=== PATIENT | male | born 1955 | race Caucasian/White ===

== ENCOUNTER 2019-03-11 10:00 | Outpatient (RCR) | payer OTHER, MEDICAID, SELFPAY ==
[2019-02-25 11:13] VITALS: BP 134/71; PULSE 75; RESP 16; TEMP 35.9; BMI 80.7
--- NOTE | 2019-02-25 12:29 | HP.PCM_ITS ---
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 Status: Chronic Current Visit: Yes Code(s): L97.922 - Non-pressure chronic ulcer of unspecified part of left lower leg with fat layer exposed (2) Type 2 diabetes mellitus with diabetic polyneuropathy Status: Chronic Current Visit: Yes Code(s): E11.42 - Type 2 diabetes mellitus with diabetic polyneuropathy (3) Venous insufficiency Status: Chronic Current Visit: Yes (4) Chronic ulcer of right leg with fat layer exposed Status: Chronic Current Visit: Yes Code(s): L97.912 - Non-pressure chronic ulcer of unspecified part of right lower leg with fat layer exposed History of Present Illness Chief Complaint: Bilateral lower extremity swelling and ulcers. History of Wound: Mr. Medina is a 63-year-old who was referred here by his primary care physician due to nonhealing bilateral lower extremity ulcers. Symptoms started in November after hospital stay for atrial flutter, sepsis and lower extremity cellulitis. Since then, states that he has noted persistent bilateral lower extremity swelling, blistering and subsequent ulceration. He had been managed by his primary care physician without any significant i mprovement and so was referred here. He also has a history of type 2 diabetes mellitus which per patient is well controlled. Last A1c was 6.4. 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 (Chronic) Peripheral vascular disease (Chronic) Venous insufficiency (Chronic) Malnutrition (Chronic) Surgical History: - - left eye surgery Allergies/Adverse Reactions: Allergies No Known Allergies Allergy (Verified 02/25/19 11:45) Home Medications: Ambulatory Orders Medication Instructions Recorded Carvedilol [Coreg] 3.125 mg PO BID 02/26/17 Doxycycline 50 mg PO DAILY 02/26/17 Fluticasone/Vilanterol [Breo 1 each IH DAILY 02/26/17 Ellipta Inhaler] Gabapentin [Neurontin] 900 mg PO BIDCM 02/26/17 Glipizide [Glucotrol Xl] 5 mg PO DAILY 02/26/17 Levothyroxine [Synthroid] 150 mcg PO DAILY 02/26/17 Liraglutide [Victoza 2-Aleksey] 1.8 mg SQ DAILY 02/26/17 Metformin HCl [Glucophage] 1,000 mg PO BIDCM 02/26/17 Multivitamins,Ther W-Minerals 1 tablet PO DAILY 02/26/17 [Multivitamin With Minerals] Niacin SA [Niaspan] 2,000 mg PO BID 02/26/17 Rosuvastatin Calcium [Crestor] 40 mg PO DAILY 02/26/17 Sitagliptin Phosphate [Januvia] 100 mg PO DAILY 02/26/17 Tadalafil [Cialis] 20 mg PO DAILY 02/26/17 Terazosin HCl [Hytrin] 1 mg PO DAILY 02/26/17 Varenicline [Chantix] 1 mg PO BID 02/26/17 Albuterol Inhaler [Ventolin Hfa 2 puff INHALATION Q4H PRN PRN 02/25/19 (SP)] Apixaban [Eliquis] 5 mg PO BID 02/25/19 Furosemide [Lasix] 40 mg PO BID 02/25/19 Losartan Potassium [Cozaar] 25 mg PO DAILY 02/25/19 Nitroglycerin 0.4 mg SL X1 02/25/19 Bryan-3 Fatty Acids/Fish Oil [Fish 1 each PO 02/25/19 Oil 1,000 mg Capsule] Omeprazole [Prilosec] 20 mg PO DAILY 02/25/19 Spironolactone [Aldactone] 25 mg PO DAILY 02/25/19 Sucralfate [Carafate] 1 gm PO 4X/DAY 02/25/19 Trospium Chloride 20 mg PO BID 02/25/19 Smoking Status: Current every day smoker Review of Systems Constitutional: Denies: Anorexia, Chills, Fever Eyes: Denies: Blurred vision, Pain, Redness HEENT: Denies: Difficulty Swallowing Cardiovascular: Denies: Chest Pain, Chest Tightness Respiratory: Denies: Hemoptysis Gastrointestinal: Denies: Abdominal Pain, Hematemesis, Vomiting Genitourinary: Denies: Hematuria Skin: Denies: Jaundice - Physical Exam Vital Signs Temp Pulse Resp BP 96.6 F L 75 16 134/71 H 02/25/19 11:13 02/25/19 11:13 02/25/19 11:13 02/25/19 11:13 General: Alert, Oriented x3, Cooperative, No apparent distress HEENT: Atraumatic, Normocephalic Oral: Moist Mucosa Neck: Supple, No JVD Lungs: Clear to auscultation, Normal air movement Cardiovascular: Regular rate, Regular Rhythm Abdomen: Soft, Non Tender, Obese Extremities: No cyanosis Skin: Ulcer/ Wound Wound Measurements and Assessment WC - Nurse 1 - General Ulcer Measurement Start: 02/25/19 11:12 Freq: Status: Active Protocol: Activity Type Activity Date Activity User E-Sign Co-Sign Detail Recorded Client Recorded Date Recorded By Document 02/25/19 11:13 [facility] [id number] 02/25/19 11:30 [facility] 02/25/19 11:13 Wound Center Nurse 1 [Ulcer Assessment] #4- LLE CLUSTER -Combined with other wound No -Current Size (cm) - Length 16.5 -Current Size (cm) - Width 19.7 -Current Size (cm) - Depth 0.1 -Total Square Cm 325.05 -Date of Last Picture (Recall this 02/25/19 field) -Photo Taken Yes -Epithelialization None Present -Tunneling No -Undermining/Tunneling No -Circular Undermining No -Exudate Amt None Present -Wound Margin Distinct, Outline Attached -Granulation Amt Small (1-33%) -Granulation Quality Red -Slough/Fibrin Yes -Necrosis Amt Large (67-100%) -Necrotic Tissue Type Eschar -Texture (Eunice-wound Skin Appearance) Assessed -Moisture (Eunice-wound Skin Appearance Assessed ) -Color (Eunice-wound Skin Appearance) Assessed -Temperature (Eunice-wound Skin No Abnormality Appearance) (Pt Warm) -Tenderness on Palpation (Eunice-wound No Skin Appearance) -Ulcer Cleansing Wound Cleanser -Foul Odor after Cleansing No -Anesthetic Used 4% Lidocaine Solution #3- RLE CLUSTER -Combined with other wound No -Current Size (cm) - Length 8.9 -Current Size (cm) - Width 19.4 -Current Size (cm) - Depth 0.1 -Total Square Cm 172.66 -Date of Last Picture (Recall this 02/25/19 field) -Photo Taken Yes -Epithelialization None Present -Tunneling No -Undermining/Tunneling No -Circular Undermining No -Exudate Amt None Present -Wound Margin Distinct, Outline Attached -Granulation Amt Small (1-33%) -Granulation Quality Red -Slough/Fibrin Yes -Necrosis Amt Large (67-100%) -Necrotic Tissue Type Eschar -Texture (Eunice-wound Skin Appearance) Assessed Scarring -Moisture (Eunice-wound Skin Appearance Assessed ) -Color (Eunice-wound Skin Appearance) Assessed Erythema -Temperature (Eunice-wound Skin No Abnormality Appearance) (Pt Warm) -Tenderness on Palpation (Eunice-wound No Skin Appearance) -Ulcer Cleansing Wound Cleanser -Foul Odor after Cleansing No -Anesthetic Used 4% Lidocaine Solution [Edema Assessment] -Lower Limb Edema Present Yes -Right Calf (cm) 38.5 -Right Ankle (cm) 24.9 -Left Calf (cm) 39.2 -Left Ankle (cm) 24.1 WC - Nurse 2 - General Ulcer CM Notes Start: 02/25/19 11:12 Freq: Status: Active Protocol: Activity Type Activity Date Activity User E-Sign Co-Sign Detail Recorded Client Recorded Date Recorded By Document 02/25/19 11:43 MW [id number] 02/25/19 11:55 MW 02/25/19 11:43 Wound Center Nurse 2 [Procedure/Treatment] #4- LLE CLUSTER -Time 11:46 -Correct Patient Yes -Correct Side, Site, Position Yes -Correct Procedure Yes -Procedure Performed Yes -Type of Procedure Debridement -Clinical Debridement Subcutaneous -Post Debridement Size (cm) - Length 13.0 -Post Debridement Size (cm) - Width 14.0 -Post Debridement Size (cm) - Depth 0.1 -Total Square Cm 182.00 -Wound/Ulcer Outcome Not Healed -Ulcer Cleansing Rinsed/ Irrigated with Saline -Foul Odor after Cleansing No -Bioengineered Tissue No -Bleeding Controlled with Pressure -Offloading No -Treatment Response Procedure Tolerated Well #3- RLE CLUSTER -Time 11:46 -Correct Patient Yes -Correct Side, Site, Position Yes -Correct Procedure Yes -Procedure Performed Yes -Type of Procedure Debridement -Clinical Debridement Subcutaneous -Post Debridement Size (cm) - Length 8.0 -Post Debridement Size (cm) - Width 10.0 -Post Debridement Size (cm) - Depth 0.1 -Total Square Cm 80.00 -Wound/Ulcer Outcome Not Healed -Ulcer Cleansing Rinsed/ Irrigated with Saline -Foul Odor after Cleansing No -Bioengineered Tissue No -Bleeding Controlled with Pressure -Offloading No -Treatment Response Procedure Tolerated Well [See Physician Procedure note for Specifics] Pain Scale: 0-10 Numeric [Pain] -Is Patient Pain Free? Yes Musculoskeletal: No Muscle Wasting Neurological: Cranial nerves II-XII grossly intact Debridement Note Post-Debridement Measurements/Treatment WC - Nurse 2 - General Ulcer CM Notes Start: 02/25/19 11:12 Freq: Status: Active Protocol: Activity Type Activity Date Activity User E-Sign Co-Sign Detail Recorded Client Recorded Date Recorded By Document 02/25/19 11:43 MW [id number] 02/25/19 11:55 MW 02/25/19 11:43 Wound Center Nurse 2 #4- LLE CLUSTER -Time 11:46 -Correct Patient Yes -Correct Side, Site, Position Yes -Correct Procedure Yes -Procedure Performed Yes -Type of Procedure Debridement -Clinical Debridement Subcutaneous -Post Debridement Size (cm) - Length 13.0 -Post Debridement Size (cm) - Width 14.0 -Post Debridement Size (cm) - Depth 0.1 -Total Square Cm 182.00 -Wound/Ulcer Outcome Not Healed -Ulcer Cleansing Rinsed/ Irrigated with Saline -Foul Odor after Cleansing No -Bioengineered Tissue No -Bleeding Controlled with Pressure -Offloading No -Treatment Response Procedure Tolerated Well #3- RLE CLUSTER -Time 11:46 -Correct Patient Yes -Correct Side, Site, Position Yes -Correct Procedure Yes -Procedure Performed Yes -Type of Procedure Debridement -Clinical Debridement Subcutaneous -Post Debridement Size (cm) - Length 8.0 -Post Debridement Size (cm) - Width 10.0 -Post Debridement Size (cm) - Depth 0.1 -Total Square Cm 80.00 -Wound/Ulcer Outcome Not Healed -Ulcer Cleansing Rinsed/ Irrigated with Saline -Foul Odor after Cleansing No -Bioengineered Tissue No -Bleeding Controlled with Pressure -Offloading No -Treatment Response Procedure Tolerated Well Pain Scale: 0-10 Numeric Is Patient Pain Free? Yes Wound debrided: Right lower extremity cluster Wound Grade/Stage: Stage II Type of Debridement: Excisional debridement Anesthesia Used: 4% Lidocaine Solution Depth: Down to and including healthy tissue, in the subcutaneous layer Percentage of wound debrided: 100 Instrument Used: 5mm curette Tissue Removed: Slough and devitalized tissue Severity: Fat Layer Exposed Amount of bleeding with debridement: Mild Bleeding Controlled with: Pressure Patient tolerated procedure well - Additional Wound Wound debrided: Left lower extremity cluster Wound Grade/Stage: Stage II Type of Debridement: Excisional debridement Anesthesia Used: 4% Lidocaine Solution Depth: Down to and including healthy tissue, in the subcutaneous layer Percentage of wound debrided: 100 Instrument Used: 5mm curette Tissue Removed: Slough and devitalized tissue Severity: Fat Layer Exposed Amount of bleeding with debridement: Mild Bleeding Controlled with: Pressure Patient tolerated procedure: Patient tolerated procedure well Assessment/Plan Active Problems Chronic ulcer of left leg with fat layer exposed (Chronic) Chronic ulcer of right leg with fat layer exposed (Chronic) Type 2 diabetes mellitus with diabetic polyneuropathy (Chronic) Venous insufficiency (Chronic) Assessment: Nonhealing bilateral lower extremity cluster ulcers secondary to venous insufficiency. Type 2 diabetes mellitus. Morbid obesity. Plan: Debridement done as documented above, procedure was well-tolerated. Recurrent/chronic ulcers are due to poor lower extremity edema control. No concern for infection at this time. Patient states that he recently had ABIs done and did not show any concerns for PAD. Promogran with Xeroform over area of erythema. Bilateral 3M wrap for edema management. Follow-up on Friday for nurse visit. Optimal blood sugar control recommended. Strongly advised to elevate his lower extremities when seated in bed. Exercise as tolerated. Avoid idle standing. Weight loss recommended. Increased protein intake also recommended. Follow-up with me in 1 week. All his questions were answered and he was advised to call with any further questions or concerns. This note was generated with [employer] software. It may contain incorrect words, spelling, and punctuation that were not noted in checking the note before signing.
--- NOTE | 2019-02-25 14:32 | WC ---
DOPPLERS/NEUROPATHY ASSESSMENT NOT COMPLETED. PT HAD ARTERIAL STUDIES/DOPPLER ON 02/09/19 AT [facility]. RESULTS IN CHART.
[2019-03-01 13:10] VITALS: BP 113/72; PULSE 74; RESP 20; TEMP 36.2; BMI 80.7
[2019-03-04 10:36] VITALS: BP 135/57; PULSE 83; RESP 20; TEMP 36.1; BMI 80.7
--- NOTE | 2019-03-04 13:29 | PCM.WC.PN ---
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 Status: Chronic Current Visit: Yes Code(s): L97.922 - Non-pressure chronic ulcer of unspecified part of left lower leg with fat layer exposed (2) Type 2 diabetes mellitus with diabetic polyneuropathy Status: Chronic Current Visit: Yes Code(s): E11.42 - Type 2 diabetes mellitus with diabetic polyneuropathy (3) Venous insufficiency Status: Chronic Current Visit: Yes (4) Chronic ulcer of right leg with fat layer exposed Status: Chronic Current Visit: Yes Code(s): L97.912 - Non-pressure chronic ulcer of unspecified part of right lower leg with fat layer exposed Type of Wound Chief Complaint: Bilateral lower extremity swelling and ulcers. History of Wound: Mr. Medina is a 63-year-old who was referred here by his primary care physician due to nonhealing bilateral lower extremity ulcers. Symptoms started in November after hospital stay for atrial flutter, sepsis and lower extremity cellulitis. Since then, states that he has noted persistent bilateral lower extremity swelling, blistering and subsequent ulceration. He had been managed by his primary care physician without any significant improvement and so was referred here. He also has a history of type 2 diabetes mellitus which per patient is well controlled. Last A1c was 6.4. Progress of Wound: Improving. No new concerns at this time. Tolerated 3Ms without concerns. - Physical Exam Vital Signs Temp Pulse Resp BP 97 F L 83 20 H 135/57 H 03/04/19 10:36 03/04/19 10:36 03/04/19 10:36 03/04/19 10:36 General: Alert, Oriented x3, Cooperative, No apparent distress HEENT: Atraumatic, Normocephalic Oral: Moist Mucosa Neck: Supple Lungs: Normal air movement Abdomen: Non Tender, Obese Extremities: No cyanosis Skin: Ulcer/ Wound Wound Measurements and Assessment WC - Nurse 1 - General Ulcer Measurement Start: 02/25/19 11:12 Freq: Status: Active Protocol: Activity Type Activity Date Activity User E-Sign Co-Sign Detail Recorded Client Recorded Date Recorded By Document 03/01/19 13:10 DL [id number] 03/01/19 13:32 DL Document 03/04/19 10:36 RB [id number] 03/04/19 10:40 RB 05/13/19 05/16/19 13:10 10:36 Wound Center Nurse 1 [Ulcer Assessment] #4- LLE CLUSTER -Combined with other wound No -Current Size (cm) - Length 0.5 -Current Size (cm) - Width 1.5 -Current Size (cm) - Depth 0.1 -Total Square Cm 0.75 -Photo Taken No -Tunneling No -Undermining/Tunneling No -Circular Undermining No No -Exudate Amt None Present Small -Exudate Type Serosanguineous -Wound Margin Flat & Intact Distinct, Outline Attached -Granulation Amt Large (67-100%) Large (67-100%) -Granulation Quality [place] Red -Slough/Fibrin Yes -Necrosis Amt Small (1-33%) -Necrotic Tissue Type Adherent Slough -Structure Exposed N/A N/A -Texture (Eunice-wound Skin Appearance) Scarring Assessed -Moisture (Eunice-wound Skin Appearance No Abnormality Assessed ) -Color (Eunice-wound Skin Appearance) Hemosiderin Assessed Staining -Temperature (Eunice-wound Skin No Abnormality No Abnormality Appearance) (Pt Warm) (Pt Warm) -Tenderness on Palpation (Eunice-wound No No Skin Appearance) -Ulcer Cleansing Wound Cleanser Wound Cleanser -Foul Odor after Cleansing No No -Anesthetic Used 4% Lidocaine Solution #3- RLE CLUSTER -Combined with other wound No -Current Size (cm) - Length 0.1 -Current Size (cm) - Width 0.1 -Current Size (cm) - Depth 0.1 -Total Square Cm 0.01 -Photo Taken No -Epithelialization Large 67-100% -Tunneling No -Undermining/Tunneling No -Circular Undermining No -Exudate Amt None Present None Present -Wound Margin Flat & Intact Distinct, Outline Attached -Granulation Amt Large (67-100%) Large (67-100%) -Granulation Quality [place] -Slough/Fibrin No -Necrosis Amt None Present (0 %) -Structure Exposed N/A N/A -Texture (Eunice-wound Skin Appearance) Scarring Assessed -Moisture (Eunice-wound Skin Appearance No Abnormality Assessed ) -Color (Eunice-wound Skin Appearance) Hemosiderin Assessed Staining -Temperature (Euniec-wound Skin No Abnormality No Abnormality Appearance) (Pt Warm) (Pt Warm) -Tenderness on Palpation (Eunice-wound No No Skin Appearance) -Ulcer Cleansing Wound Cleanser Wound Cleanser -Foul Odor after Cleansing No No [Edema Assessment] -Lower Limb Edema Present Yes -Right Calf (cm) 34 35 -Right Ankle (cm) 21.5 21.6 -Left Calf (cm) 33.8 35.2 -Left Ankle (cm) 21.5 22 WC - Nurse 2 - General Ulcer CM Notes Start: 02/25/19 11:12 Freq: Status: Active Protocol: Activity Type Activity Date Activity User E-Sign Co-Sign Detail Recorded Client Recorded Date Recorded By Document 03/04/19 10:53 MW [id number] 03/04/19 10:55 MW 03/04/19 10:53 Wound Center Nurse 2 [Procedure/Treatment] #4- LLE CLUSTER -Time 10:53 -Correct Patient Yes -Correct Side, Site, Position Yes -Correct Procedure Yes -Procedure Performed Yes -Type of Procedure Debridement -Clinical Debridement Subcutaneous -Post Debridement Size (cm) - Length 0.4 -Post Debridement Size (cm) - Width 1.5 -Post Debridement Size (cm) - Depth 0.1 -Total Square Cm 0.60 -Wound/Ulcer Outcome Not Healed -Ulcer Cleansing Rinsed/ Irrigated with Saline -Foul Odor after Cleansing No -Bioengineered Tissue No -Bleeding Controlled with Pressure -Offloading No -Treatment Response Procedure Tolerated Well #3- RLE CLUSTER -Time 10:53 -Correct Patient Yes -Correct Side, Site, Position Yes -Correct Procedure Yes -Procedure Performed No -Post Debridement Size (cm) - Length 0 -Post Debridement Size (cm) - Width 0 -Post Debridement Size (cm) - Depth 0 -Total Square Cm 0 -Wound/Ulcer Outcome Not Healed [See Physician Procedure note for Specifics] Pain Scale: 0-10 Numeric [Pain] -Is Patient Pain Free? Yes Musculoskeletal: No Muscle Wasting Neurological: Cranial nerves II-XII grossly intact Psych/Mental Status: Normal Affect Debridement Note Post-Debridement Measurements/Treatment WC - Nurse 2 - General Ulcer CM Notes Start: 02/25/19 11:12 Freq: Status: Active Protocol: Activity Type Activity Date Activity User E-Sign Co-Sign Detail Recorded Client Recorded Date Recorded By Document 02/25/19 11:43 MW [id number] 02/25/19 11:55 MW Document 03/04/19 10:53 MW [id number] 03/04/19 10:55 MW 02/25/19 03/04/19 11:43 10:53 Wound Center Nurse 2 #4- LLE CLUSTER -Time 11:46 10:53 -Correct Patient Yes Yes -Correct Side, Site, Position Yes Yes -Correct Procedure Yes Yes -Procedure Performed Yes Yes -Type of Procedure Debridement Debridement -Clinical Debridement Subcutaneous Subcutaneous -Post Debridement Size (cm) - Length 13.0 0.4 -Post Debridement Size (cm) - Width 14.0 1.5 -Post Debridement Size (cm) - Depth 0.1 0.1 -Total Square Cm 182.00 0.60 -Wound/Ulcer Outcome Not Healed Not Healed -Ulcer Cleansing Rinsed/ Rinsed/ Irrigated with Irrigated with Saline Saline -Foul Odor after Cleansing No No -Bioengineered Tissue No No -Bleeding Controlled with Pressure Pressure -Offloading No No -Treatment Response Procedure Procedure Tolerated Well Tolerated Well #3- RLE CLUSTER -Time 11:46 10:53 -Correct Patient Yes Yes -Correct Side, Site, Position Yes Yes -Correct Procedure Yes Yes -Procedure Performed Yes No -Type of Procedure Debridement -Clinical Debridement Subcutaneous -Post Debridement Size (cm) - Length 8.0 0 -Post Debridement Size (cm) - Width 10.0 0 -Post Debridement Size (cm) - Depth 0.1 0 -Total Square Cm 80.00 0 -Wound/Ulcer Outcome Not Healed Not Healed -Ulcer Cleansing Rinsed/ Irrigated with Saline -Foul Odor after Cleansing No -Bioengineered Tissue No -Bleeding Controlled with Pressure -Offloading No -Treatment Response Procedure Tolerated Well Pain Scale: 0-10 Numeric Is Patient Pain Free? Yes Yes Wound debrided: Left lower extremity Wound Grade/Stage: Stage II Type of Debridement: Excisional debridement Anesthesia Used: 4% Lidocaine Solution Depth: Down to and including healthy tissue, in the subcutaneous layer Percentage of wound debrided: 100 Instrument Used: 3mm curette Tissue Removed: Slough and devitalized tissue Severity: Fat Layer Exposed Amount of bleeding with debridement: Mild Bleeding Controlled with: Pressure Patient tolerated procedure well Assessment/Plan Active Problems Chronic ulcer of left leg with fat layer exposed (Chronic) Chronic ulcer of right leg with fat layer exposed (Chronic) Type 2 diabetes mellitus with diabetic polyneuropathy (Chronic) Venous insufficiency (Chronic) Assessment: Nonhealing bilateral lower extremity cluster ulcers secondary to venous insufficiency. Type 2 diabetes mellitus. Morbid obesity. Plan: Debridement done as documented above, procedure was well-tolerated. Improving. Continue Promogran with Xeroform over area of erythema. Bilateral 3M wrap for edema management. Optimal blood sugar control recommended. Strongly advised to elevate his lower extremities when seated and in bed. Exercise as tolerated. Avoid idle standing. Weight loss recommended. Increased protein intake also recommended. Follow-up with me in 1 week. All his questions were answered and he was advised to call with any further questions or concerns. This note was generated with [employer] dictation software. It may contain incorrect words, spelling, and punctuation that were not noted in checking the note before signing.
--- NOTE | 2019-03-04 13:34 | PN.PCM_ITS ---
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 Status: Chronic Current Visit: Yes Code(s): L97.922 - Non-pressure chronic ulcer of unspecified part of left lower leg with fat layer exposed (2) Type 2 diabetes mellitus with diabetic polyneuropathy Status: Chronic Current Visit: Yes Code(s): E11.42 - Type 2 diabetes mellitus with diabetic polyneuropathy (3) Venous insufficiency Status: Chronic Current Visit: Yes (4) Chronic ulcer of right leg with fat layer exposed Status: Chronic Current Visit: Yes Code(s): L97.912 - Non-pressure chronic ulcer of unspecified part of right lower leg with fat layer exposed Type of Wound Chief Complaint: Bilateral lower extremity swelling and ulcers. History of Wound: Mr. Medina is a 63-year-old who was referred here by his primary care physician due to nonhealing bilateral lower extremity ulcers. Symptoms started in November after hospital stay for atrial flutter, sepsis and lower extremity cellulitis. Since then, states that he has noted persistent bilateral lower extremity swelling, blistering and subsequent ulceration. He had been managed by his primary care physician without any significant improvement and so was referred here. He also has a history of type 2 diabetes mellitus which per patient is well controlled. Last A1c was 6.4. Progress of Wound: Improving. No new concerns at this time. Tolerated 3Ms without concerns. - Physical Exam Vital Signs Temp Pulse Resp BP 97 F L 83 20 H 135/57 H 03/04/19 10:36 03/04/19 10:36 03/04/19 10:36 03/04/19 10:36 General: Alert, Oriented x3, Cooperative, No apparent distress HEENT: Atraumatic, Normocephalic Oral: Moist Mucosa Neck: Supple Lungs: Normal air movement Abdomen: Non Tender, Obese Extremities: No cyanosis Skin: Ulcer/ Wound Wound Measurements and Assessment WC - Nurse 1 - General Ulcer Measurement Start: 02/25/19 11:12 Freq: Status: Active Protocol: Activity Type Activity Date Activity User E-Sign Co-Sign Detail Recorded Client Recorded Date Recorded By Document 03/01/19 13:10 DL [id number] 03/01/19 13:32 DL Document 03/04/19 10:36 RB [id number] 03/04/19 10:40 RB 05/13/19 05/16/19 13:10 10:36 Wound Center Nurse 1 [Ulcer Assessment] #4- LLE CLUSTER -Combined with other wound No -Current Size (cm) - Length 0.5 -Current Size (cm) - Width 1.5 -Current Size (cm) - Depth 0.1 -Total Square Cm 0.75 -Photo Taken No -Tunneling No -Undermining/Tunneling No -Circular Undermining No No -Exudate Amt None Present Small -Exudate Type Serosanguineous -Wound Margin Flat & Intact Distinct, Outline Attached -Granulation Amt Large (67-100%) Large (67-100%) -Granulation Quality [place] Red -Slough/Fibrin Yes -Necrosis Amt Small (1-33%) -Necrotic Tissue Type Adherent Slough -Structure Exposed N/A N/A -Texture (Eunice-wound Skin Appearance) Scarring Assessed -Moisture (Eunice-wound Skin Appearance No Abnormality Assessed ) -Color (Eunice-wound Skin Appearance) Hemosiderin Assessed Staining -Temperature (Eunice-wound Skin No Abnormality No Abnormality Appearance) (Pt Warm) (Pt Warm) -Tenderness on Palpation (Eunice-wound No No Skin Appearance) -Ulcer Cleansing Wound Cleanser Wound Cleanser -Foul Odor after Cleansing No No -Anesthetic Used 4% Lidocaine Solution #3- RLE CLUSTER -Combined with other wound No -Current Size (cm) - Length 0.1 -Current Size (cm) - Width 0.1 -Current Size (cm) - Depth 0.1 -Total Square Cm 0.01 -Photo Taken No -Epithelialization Large 67-100% -Tunneling No -Undermining/Tunneling No -Circular Undermining No -Exudate Amt None Present None Present -Wound Margin Flat & Intact Distinct, Outline Attached -Granulation Amt Large (67-100%) Large (67-100%) -Granulation Quality [place] -Slough/Fibrin No -Necrosis Amt None Present (0 %) -Structure Exposed N/A N/A -Texture (Eunice-wound Skin Appearance) Scarring Assessed -Moisture (Eunice-wound Skin Appearance No Abnormality Assessed ) -Color (Eunice-wound Skin Appearance) Hemosiderin Assessed Staining -Temperature (Eunice-wound Skin No Abnormality No Abnormality Appearance) (Pt Warm) (Pt Warm) -Tenderness on Palpation (Eunice-wound No No Skin Appearance) -Ulcer Cleansing Wound Cleanser Wound Cleanser -Foul Odor after Cleansing No No [Edema Assessment] -Lower Limb Edema Present Yes -Right Calf (cm) 34 35 -Right Ankle (cm) 21.5 21.6 -Left Calf (cm) 33.8 35.2 -Left Ankle (cm) 21.5 22 WC - Nurse 2 - General Ulcer CM Notes Start: 02/25/19 11:12 Freq: Status: Active Protocol: Activity Type Activity Date Activity User E-Sign Co-Sign Detail Recorded Client Recorded Date Recorded By Document 03/04/19 10:53 MW [id number] 03/04/19 10:55 MW 03/04/19 10:53 Wound Center Nurse 2 [Procedure/Treatment] #4- LLE CLUSTER -Time 10:53 -Correct Patient Yes -Correct Side, Site, Position Yes -Correct Procedure Yes -Procedure Performed Yes -Type of Procedure Debridement -Clinical Debridement Subcutaneous -Post Debridement Size (cm) - Length 0.4 -Post Debridement Size (cm) - Width 1.5 -Post Debridement Size (cm) - Depth 0.1 -Total Square Cm 0.60 -Wound/Ulcer Outcome Not Healed -Ulcer Cleansing Rinsed/ Irrigated with Saline -Foul Odor after Cleansing No -Bioengineered Tissue No -Bleeding Controlled with Pressure -Offloading No -Treatment Response Procedure Tolerated Well #3- RLE CLUSTER -Time 10:53 -Correct Patient Yes -Correct Side, Site, Position Yes -Correct Procedure Yes -Procedure Performed No -Post Debridement Size (cm) - Length 0 -Post Debridement Size (cm) - Width 0 -Post Debridement Size (cm) - Depth 0 -Total Square Cm 0 -Wound/Ulcer Outcome Not Healed [See Physician Procedure note for Specifics] Pain Scale: 0-10 Numeric [Pain] -Is Patient Pain Free? Yes Musculoskeletal: No Muscle Wasting Neurological: Cranial nerves II-XII grossly intact Psych/Mental Status: Normal Affect Debridement Note Post-Debridement Measurements/Treatment WC - Nurse 2 - General Ulcer CM Notes Start: 02/25/19 11:12 Freq: Status: Active Protocol: Activity Type Activity Date Activity User E-Sign Co-Sign Detail Recorded Client Recorded Date Recorded By Document 02/25/19 11:43 MW [id number] 02/25/19 11:55 MW Document 03/04/19 10:53 MW [id number] 03/04/19 10:55 MW 02/25/19 03/04/19 11:43 10:53 Wound Center Nurse 2 #4- LLE CLUSTER -Time 11:46 10:53 -Correct Patient Yes Yes -Correct Side, Site, Position Yes Yes -Correct Procedure Yes Yes -Procedure Performed Yes Yes -Type of Procedure Debridement Debridement -Clinical Debridement Subcutaneous Subcutaneous -Post Debridement Size (cm) - Length 13.0 0.4 -Post Debridement Size (cm) - Width 14.0 1.5 -Post Debridement Size (cm) - Depth 0.1 0.1 -Total Square Cm 182.00 0.60 -Wound/Ulcer Outcome Not Healed Not Healed -Ulcer Cleansing Rinsed/ Rinsed/ Irrigated with Irrigated with Saline Saline -Foul Odor after Cleansing No No -Bioengineered Tissue No No -Bleeding Controlled with Pressure Pressure -Offloading No No -Treatment Response Procedure Procedure Tolerated Well Tolerated Well #3- RLE CLUSTER -Time 11:46 10:53 -Correct Patient Yes Yes -Correct Side, Site, Position Yes Yes -Correct Procedure Yes Yes -Procedure Performed Yes No -Type of Procedure Debridement -Clinical Debridement Subcutaneous -Post Debridement Size (cm) - Length 8.0 0 -Post Debridement Size (cm) - Width 10.0 0 -Post Debridement Size (cm) - Depth 0.1 0 -Total Square Cm 80.00 0 -Wound/Ulcer Outcome Not Healed Not Healed -Ulcer Cleansing Rinsed/ Irrigated with Saline -Foul Odor after Cleansing No -Bioengineered Tissue No -Bleeding Controlled with Pressure -Offloading No -Treatment Response Procedure Tolerated Well Pain Scale: 0-10 Numeric Is Patient Pain Free? Yes Yes Wound debrided: Left lower extremity Wound Grade/Stage: Stage II Type of Debridement: Excisional debridement Anesthesia Used: 4% Lidocaine Solution Depth: Down to and including healthy tissue, in the subcutaneous layer Percentage of wound debrided: 100 Instrument Used: 3mm curette Tissue Removed: Slough and devitalized tissue Severity: Fat Layer Exposed Amount of bleeding with debridement: Mild Bleeding Controlled with: Pressure Patient tolerated procedure well Assessment/Plan Active Problems Chronic ulcer of left leg with fat layer exposed (Chronic) Chronic ulcer of right leg with fat layer exposed (Chronic) Type 2 diabetes mellitus with diabetic polyneuropathy (Chronic) Venous insufficiency (Chronic) Assessment: Nonhealing bilateral lower extremity cluster ulcers secondary to venous insufficiency. Type 2 diabetes mellitus. Morbid obesity. Plan: Debridement done as documented above, procedure was well-tolerated. Improving. Continue Promogran with Xeroform over area of erythema. Bilateral 3M wrap for edema management. Optimal blood sugar control recommended. Strongly advised to elevate his lower extremities when seated and in bed. Exercise as tolerated. Avoid idle standing. Weight loss recommended. Increased protein intake also recommended. Follow-up with me in 1 week. All his questions were answered and he was advised to call with any further questions or concerns. This note was generated with [email or web address] dictation software. It may contain incorrect words, spelling, and punctuation that were not noted in checking the note before signing.
[2019-03-11 10:17] VITALS: BP 122/87; PULSE 70; RESP 18; TEMP 36.8; BMI 80.7
--- NOTE | 2019-03-11 17:29 | PCM.WC.PN ---
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 Status: Chronic Current Visit: Yes Code(s): L97.922 - Non-pressure chronic ulcer of unspecified part of left lower leg with fat layer exposed (2) Type 2 diabetes mellitus with diabetic polyneuropathy Status: Chronic Current Visit: Yes Code(s): E11.42 - Type 2 diabetes mellitus with diabetic polyneuropathy (3) Venous insufficiency Status: Chronic Current Visit: Yes (4) Chronic ulcer of right leg with fat layer exposed Status: Chronic Current Visit: Yes Code(s): L97.912 - Non-pressure chronic ulcer of unspecified part of right lower leg with fat layer exposed Type of Wound Chief Complaint: Bilateral lower extremity swelling and ulcers. History of Wound: Mr. Medina is a 63-year-old who was referred here by his primary care physician due to nonhealing bilateral lower extremity ulcers. Symptoms started in November after hospital stay for atrial flutter, sepsis and lower extremity cellulitis. Since then, states that he has noted persistent bilateral lower extremity swelling, blistering and subsequent ulceration. He had been managed by his primary care physician without any significant improvement and so was referred here. He also has a history of type 2 diabetes mellitus which per patient is well controlled. Last A1c was 6.4. Progress of Wound: Healed. - Physical Exam Vital Signs Temp Pulse Resp BP 98.2 F 70 18 122/87 H 03/11/19 10:17 03/11/19 10:17 03/11/19 10:17 03/11/19 10:17 General: Alert, Oriented x3, Cooperative, No apparent distress HEENT: Atraumatic, Normocephalic Oral: Moist Mucosa Neck: Supple Lungs: Normal air movement Abdomen: Non Tender, Obese Extremities: No cyanosis Wound Measurements and Assessment WC - Nurse 1 - General Ulcer Measurement Start: 02/25/19 11:12 Freq: Status: Active Protocol: Activity Type Activity Date Activity User E-Sign Co-Sign Detail Recorded Client Recorded Date Recorded By Document 03/11/19 10:17 RANDAL [id number] 03/11/19 10:20 RANDAL 03/11/19 10:17 Wound Center Nurse 1 [Ulcer Assessment] #4- LLE CLUSTER -Combined with other wound No -Current Size (cm) - Length 0 -Current Size (cm) - Width 0 -Current Size (cm) - Depth 0 -Total Square Cm 0 -Date of Last Picture (Recall this 03/11/19 field) -Photo Taken Yes -Texture (Eunice-wound Skin Appearance) No Abnormality Assessed -Moisture (Eunice-wound Skin Appearance No Abnormality ) Assessed -Color (Eunice-wound Skin Appearance) No Abnormality Assessed -Temperature (Eunice-wound Skin No Abnormality Appearance) (Pt Warm) -Ulcer Cleansing soap -Foul Odor after Cleansing No [Edema Assessment] -Lower Limb Edema Present No -Right Calf (cm) 34.2 -Right Ankle (cm) 21.3 -Left Calf (cm) 34.6 -Left Ankle (cm) 22.0 Musculoskeletal: No Muscle Wasting Neurological: Cranial nerves II-XII grossly intact Psych/Mental Status: Normal Affect Debridement Note Post-Debridement Measurements/Treatment WC - Nurse 2 - General Ulcer CM Notes Start: 02/25/19 11:12 Freq: Status: Active Protocol: Activity Type Activity Date Activity User E-Sign Co-Sign Detail Recorded Client Recorded Date Recorded By Document 02/25/19 11:43 MW [id number] 02/25/19 11:55 MW Document 03/04/19 10:53 MW [id number] 03/04/19 10:55 MW 02/25/19 03/04/19 11:43 10:53 Wound Center Nurse 2 #4- LLE CLUSTER -Time 11:46 10:53 -Correct Patient Yes Yes -Correct Side, Site, Position Yes Yes -Correct Procedure Yes Yes -Procedure Performed Yes Yes -Type of Procedure Debridement Debridement -Clinical Debridement Subcutaneous Subcutaneous -Post Debridement Size (cm) - Length 13.0 0.4 -Post Debridement Size (cm) - Width 14.0 1.5 -Post Debridement Size (cm) - Depth 0.1 0.1 -Total Square Cm 182.00 0.60 -Wound/Ulcer Outcome Not Healed Not Healed -Ulcer Cleansing Rinsed/ Rinsed/ Irrigated with Irrigated with Saline Saline -Foul Odor after Cleansing No No -Bioengineered Tissue No No -Bleeding Controlled with Pressure Pressure -Offloading No No -Treatment Response Procedure Procedure Tolerated Well Tolerated Well #3- RLE CLUSTER -Time 11:46 10:53 -Correct Patient Yes Yes -Correct Side, Site, Position Yes Yes -Correct Procedure Yes Yes -Procedure Performed Yes No -Type of Procedure Debridement -Clinical Debridement Subcutaneous -Post Debridement Size (cm) - Length 8.0 0 -Post Debridement Size (cm) - Width 10.0 0 -Post Debridement Size (cm) - Depth 0.1 0 -Total Square Cm 80.00 0 -Wound/Ulcer Outcome Not Healed Not Healed -Ulcer Cleansing Rinsed/ Irrigated with Saline -Foul Odor after Cleansing No -Bioengineered Tissue No -Bleeding Controlled with Pressure -Offloading No -Treatment Response Procedure Tolerated Well Pain Scale: 0-10 Numeric Is Patient Pain Free? Yes Yes No debridement was completed today Assessment/Plan Active Problems Chronic ulcer of left leg with fat layer exposed (Chronic) Chronic ulcer of right leg with fat layer exposed (Chronic) Type 2 diabetes mellitus with diabetic polyneuropathy (Chronic) Venous insufficiency (Chronic) Assessment: Nonhealing bilateral lower extremity cluster ulcers secondary to venous insufficiency. Type 2 diabetes mellitus. Morbid obesity. Plan: Healed. Edema also significantly improved. Soon to get his CircAid. Double layer Tubigrip's for now. Strongly advised on edema management/control. Discharged from the wound clinic. He was advised to call with any questions or concerns.
== END 2019-03-19 23:59 ==
LOC: WC 10:00
PROVIDERS: Family Provider Family Medicine; PCP Family Medicine; Visit Provider Internal Medicine
DX: E11.622 Type 2 diabetes mellitus with other skin ulcer (principal); E11.42 Type 2 diabetes mellitus with diabetic polyneuropathy; L97.822 Non-pressure chronic ulcer of other part of left lower leg with fat layer exposed; I87.2 Venous insufficiency (chronic) (peripheral); L97.812 Non-pressure chronic ulcer of other part of right lower leg with fat layer exposed; M79.89 Other specified soft tissue disorders; E11.51 Type 2 diabetes mellitus with diabetic peripheral angiopathy without gangrene; Z79.899 Other long term (current) drug therapy; F17.200 Nicotine dependence, unspecified, uncomplicated; Z79.01 Long term (current) use of anticoagulants; E66.01 Morbid (severe) obesity due to excess calories; Z68.45 Body mass index [BMI] 70 or greater, adult; Z71.3 Dietary counseling and surveillance
CPT/HCPCS: 11042; 11045; 29580; 29581; 99212; 99213; G0463

== ENCOUNTER 2019-08-19 12:45 | Outpatient (RCR) | payer OTHER, SELFPAY ==
[2019-08-04 11:29] VITALS: BP 126/49; PULSE 81; RESP 16; TEMP 36.2; BMI 35.9
--- NOTE | 2019-08-04 12:49 | PCM.WC.HP ---
(1) Ulcer of right lower extremity, limited to breakdown of skin Status: Chronic Current Visit: Yes Code(s): L97.911 - Non-pressure chronic ulcer of unspecified part of right lower leg limited to breakdown of skin (2) Chronic ulcer of left leg with fat layer exposed Status: Chronic Current Visit: Yes Code(s): L97.922 - Non-pressure chronic ulcer of unspecified part of left lower leg with fat layer exposed History of Present Illness Date of Service: 08/04/19 Chief Complaint: Bilateral Recurrent lower extremity ulcers. History of Wound: Mr. Medina is a 64-year-old who presents due to recurrent bilateral leg ulcers. He reports blistering with subsequent ulcerations which have been ongoing for the last couple of months. He reports compliance with his Circaid for compression. He has tried some conservative wound care but is concerned that it keeps recurring. He feels well otherwise. 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 (Chronic) Peripheral vascular disease (Chronic) Venous insufficiency (Chronic) Malnutrition (Chronic) Surgical History: - - left eye surgery Allergies/Adverse Reactions: Allergies No Known Allergies Allergy (Verified 08/04/19 11:37) Home Medications: Ambulatory Orders Medication Instructions Recorded Carvedilol [Coreg] 3.125 mg PO BID 02/26/17 Doxycycline 50 mg PO DAILY 02/26/17 Fluticasone/Vilanterol [Breo 1 each IH DAILY 02/26/17 Ellipta Inhaler] Gabapentin [Neurontin] 900 mg PO BIDCM 02/26/17 Glipizide [Glucotrol Xl] 5 mg PO DAILY 02/26/17 Levothyroxine [Synthroid] 150 mcg PO DAILY 02/26/17 Liraglutide [Victoza 2-Aleksey] 1.8 mg SQ DAILY 02/26/17 Multivitamins,Ther W-Minerals 1 tablet PO DAILY 02/26/17 [Multivitamin With Minerals] Niacin SA [Niaspan] 2,000 mg PO BID 02/26/17 Rosuvastatin Calcium [Crestor] 40 mg PO DAILY 02/26/17 Sitagliptin Phosphate [Januvia] 100 mg PO DAILY 02/26/17 Terazosin HCl [Hytrin] 1 mg PO DAILY 02/26/17 Varenicline [Chantix] 1 mg PO BID 02/26/17 metFORMIN HCl [Glucophage] 1,000 mg PO BIDCM 02/26/17 Albuterol Inhaler [Ventolin Hfa 2 puff INHALATION Q4H PRN PRN 02/25/19 (SP)] Apixaban [Eliquis] 5 mg PO BID 02/25/19 Furosemide [Lasix] 40 mg PO BID 02/25/19 Losartan Potassium [Cozaar] 25 mg PO DAILY 02/25/19 Nitroglycerin 0.4 mg SL X1 02/25/19 Clutier-3 Fatty Acids/Fish Oil [Fish 3,000 mg PO DAILY 02/25/19 Oil 1,000 mg Capsule] Omeprazole [Prilosec] 20 mg PO DAILY 02/25/19 Spironolactone [Aldactone] 25 mg PO DAILY 02/25/19 Trospium Chloride 20 mg PO BID 02/25/19 Smoking Status: Current every day smoker Review of Systems Constitutional: Denies: Anorexia, Chills, Fever Eyes: Denies: Pain, Redness HEENT: Denies: Difficulty Hearing, Difficulty Swallowing Cardiovascular: Denies: Chest Pain, Claudication, Chest Pressure Respiratory: Denies: Hemoptysis Gastrointestinal: Denies: Abdominal Pain, Hematemesis, Vomiting Skin: Denies: Jaundice - Physical Exam Vital Signs Temp Pulse Resp BP 97.1 F L 81 16 126/49 H 08/04/19 11:29 08/04/19 11:29 08/04/19 11:29 08/04/19 11:29 General: Alert, Oriented x3, Cooperative, No apparent distress HEENT: Atraumatic, Normocephalic Oral: Moist Mucosa Neck: Supple Lungs: Normal air movement Cardiovascular: Regular rate, Regular Rhythm, Normal S1, Normal S2 Abdomen: Soft, Non Tender, Obese Extremities: No cyanosis, Edema Skin: Ulcer/ Wound Wound Measurements and Assessment WC - Nurse 1 - General Ulcer Measurement Start: 08/04/19 11:29 Freq: Status: Active Protocol: Activity Type Activity Date Activity User E-Sign Co-Sign Detail Recorded Client Recorded Date Recorded By Document 08/04/19 11:29 [facility] [id number] 08/04/19 11:37 [facility] 08/04/19 11:29 Wound Center Nurse 1 [Ulcer Assessment] #7- LLE CLUSTER -Combined with other wound No -Current Size (cm) - Length 8.5 -Current Size (cm) - Width 11.4 -Current Size (cm) - Depth 0.1 -Total Square Cm 96.90 -Date of Last Picture (Recall this 08/04/19 field) -Photo Taken Yes -Epithelialization None Present -Tunneling No -Undermining/Tunneling No -Circular Undermining No -Exudate Amt None Present -Wound Margin Distinct, Outline Attached -Granulation Amt None Present (0 %) -Slough/Fibrin Yes -Necrosis Amt Large (67-100%) -Necrotic Tissue Type Eschar -Texture (Eunice-wound Skin Appearance) Assessed, Scarring -Moisture (Eunice-wound Skin Appearance Assessed,Dry/ ) Scaly -Color (Eunice-wound Skin Appearance) Assessed, Hemosiderin Staining -Temperature (Eunice-wound Skin No Abnormality Appearance) (Pt Warm) -Tenderness on Palpation (Eunice-wound No Skin Appearance) -Ulcer Cleansing Rinsed/ Irrigated with Saline -Foul Odor after Cleansing No -Anesthetic Used 4% Lidocaine Solution #6- R RON -Combined with other wound No -Current Size (cm) - Length 0.8 -Current Size (cm) - Width 0.7 -Current Size (cm) - Depth 0.1 -Total Square Cm 0.56 -Date of Last Picture (Recall this 08/04/19 field) -Photo Taken Yes -Epithelialization None Present -Tunneling No -Undermining/Tunneling No -Circular Undermining No -Exudate Amt None Present -Wound Margin Distinct, Outline Attached -Granulation Amt None Present (0 %) -Slough/Fibrin Yes -Necrosis Amt Large (67-100%) -Necrotic Tissue Type Eschar -Texture (Eunice-wound Skin Appearance) Assessed, Scarring -Moisture (Eunice-wound Skin Appearance Assessed,Dry/ ) Scaly -Color (Eunice-wound Skin Appearance) Assessed, Hemosiderin Staining -Temperature (Eunice-wound Skin No Abnormality Appearance) (Pt Warm) -Tenderness on Palpation (Eunice-wound No Skin Appearance) -Ulcer Cleansing Rinsed/ Irrigated with Saline -Foul Odor after Cleansing No -Anesthetic Used 4% Lidocaine Solution #5- RLE CLUSTER -Combined with other wound No -Current Size (cm) - Length 9.6 -Current Size (cm) - Width 17.7 -Current Size (cm) - Depth 0.1 -Total Square Cm 169.92 -Date of Last Picture (Recall this 08/04/19 field) -Photo Taken Yes -Epithelialization None Present -Tunneling No -Undermining/Tunneling No -Circular Undermining No -Exudate Amt None Present -Wound Margin Distinct, Outline Attached -Granulation Amt None Present (0 %) -Slough/Fibrin Yes -Necrosis Amt Large (67-100%) -Necrotic Tissue Type Eschar -Texture (Eunice-wound Skin Appearance) Assessed, Scarring -Moisture (Eunice-wound Skin Appearance Assessed,Dry/ ) Scaly -Color (Eunice-wound Skin Appearance) Assessed, Hemosiderin Staining -Temperature (Eunice-wound Skin No Abnormality Appearance) (Pt Warm) -Tenderness on Palpation (Eunice-wound No Skin Appearance) -Ulcer Cleansing Rinsed/ Irrigated with Saline -Foul Odor after Cleansing No -Anesthetic Used 4% Lidocaine Solution [Edema Assessment] -Lower Limb Edema Present Yes -Right Calf (cm) 33.5 -Right Ankle (cm) 23 -Left Calf (cm) 35.2 -Left Ankle (cm) 22.1 WC - Nurse 2 - General Ulcer CM Notes Start: 08/04/19 11:29 Freq: Status: Active Protocol: Activity Type Activity Date Activity User E-Sign Co-Sign Detail Recorded Client Recorded Date Recorded By Document 08/04/19 11:45 MW [id number] 08/04/19 11:53 MW 08/04/19 11:45 Wound Center Nurse 2 [Procedure/Treatment] #7- LLE CLUSTER -Time 11:51 -Correct Patient Yes -Correct Side, Site, Position Yes -Correct Procedure Yes -Procedure Performed Yes -Type of Procedure Debridement -Clinical Debridement Subcutaneous -Post Debridement Size (cm) - Length 0.6 -Post Debridement Size (cm) - Width 0.9 -Post Debridement Size (cm) - Depth 0.1 -Total Square Cm 0.54 -Wound/Ulcer Outcome Not Healed -Ulcer Cleansing Rinsed/ Irrigated with Saline -Foul Odor after Cleansing No -Bioengineered Tissue No -Bleeding Controlled with Pressure -Offloading No -Treatment Response Procedure Tolerated Well #6- R RON -Time 11:50 -Correct Patient Yes -Correct Side, Site, Position Yes -Correct Procedure Yes -Procedure Performed No -Wound/Ulcer Outcome Not Healed -Ulcer Cleansing Not Cleansed -Foul Odor after Cleansing No -Bioengineered Tissue No -Bleeding Controlled with Pressure -Offloading No -Treatment Response Procedure Tolerated Well #5- RLE CLUSTER -Time 11:50 -Correct Patient Yes -Correct Side, Site, Position Yes -Correct Procedure Yes -Procedure Performed No -Wound/Ulcer Outcome Not Healed -Ulcer Cleansing Not Cleansed -Foul Odor after Cleansing No -Bioengineered Tissue No -Bleeding Controlled with NA -Offloading No -Treatment Response Procedure Tolerated Well [See Physician Procedure note for Specifics] Pain Scale: 0-10 Numeric [Pain] -Is Patient Pain Free? Yes Musculoskeletal: No Muscle Wasting Neurological: Cranial nerves II-XII grossly intact Psych/Mental Status: Normal Affect Debridement Note Post-Debridement Measurements/Treatment WC - Nurse 2 - General Ulcer CM Notes Start: 08/04/19 11:29 Freq: Status: Active Protocol: Activity Type Activity Date Activity User E-Sign Co-Sign Detail Recorded Client Recorded Date Recorded By Document 08/04/19 11:45 MW [id number] 08/04/19 11:53 MW 08/04/19 11:45 Wound Center Nurse 2 #7- LLE CLUSTER -Time 11:51 -Correct Patient Yes -Correct Side, Site, Position Yes -Correct Procedure Yes -Procedure Performed Yes -Type of Procedure Debridement -Clinical Debridement Subcutaneous -Post Debridement Size (cm) - Length 0.6 -Post Debridement Size (cm) - Width 0.9 -Post Debridement Size (cm) - Depth 0.1 -Total Square Cm 0.54 -Wound/Ulcer Outcome Not Healed -Ulcer Cleansing Rinsed/ Irrigated with Saline -Foul Odor after Cleansing No -Bioengineered Tissue No -Bleeding Controlled with Pressure -Offloading No -Treatment Response Procedure Tolerated Well #6- R RON -Time 11:50 -Correct Patient Yes -Correct Side, Site, Position Yes -Correct Procedure Yes -Procedure Performed No -Wound/Ulcer Outcome Not Healed -Ulcer Cleansing Not Cleansed -Foul Odor after Cleansing No -Bioengineered Tissue No -Bleeding Controlled with Pressure -Offloading No -Treatment Response Procedure Tolerated Well #5- RLE CLUSTER -Time 11:50 -Correct Patient Yes -Correct Side, Site, Position Yes -Correct Procedure Yes -Procedure Performed No -Wound/Ulcer Outcome Not Healed -Ulcer Cleansing Not Cleansed -Foul Odor after Cleansing No -Bioengineered Tissue No -Bleeding Controlled with NA -Offloading No -Treatment Response Procedure Tolerated Well Pain Scale: 0-10 Numeric Is Patient Pain Free? Yes Wound debrided: Left Ron Type of Debridement: Excisional debridement Anesthesia Used: 4% Lidocaine Solution Depth: Down to and including healthy tissue, in the subcutaneous layer Percentage of wound debrided: 100 Instrument Used: 3mm curette Tissue Removed: Slough and devitalized tissue Severity: Fat Layer Exposed Amount of bleeding with debridement: Mild Bleeding Controlled with: Pressure Patient tolerated procedure well Assessment/Plan Active Problems Chronic ulcer of left leg with fat layer exposed (Chronic) Ulcer of right lower extremity, limited to breakdown of skin (Chronic) Assessment: Recurrent bilateral lower extremity cluster ulcers. Statsis Dermatitis. Type 2 diabetes mellitus. Morbid obesity. Plan: Debridement done as documented above, procedure was well tolerated. Bilateral area of Stasis dermatitis which is where ulceration is primarily. Trace to 1+ edema. As above, he reports compliance with compression. He however admits that he does not moisturize his skin at all. He was advised to Aquahor healing ointment recommended. Xeroform to the reddened/ scab area. Guaze and tap to secure. Continue Circaid for compression. Avoid idle standing, elevate lower extremities when seated and in bed and also increase protein intake. Optimal Diabetes control. Venous and Arterial studies also ordered . His questions were answered and he was advised to call with any further questions or concerns. Follow-up in a week. This note was generated with [employer] software. It may contain incorrect words, spelling, and punctuation that were not noted in checking the note before signing.
--- NOTE | 2019-08-11 13:50 | ART_ITS ---
Reason For Study: PAD Procedure A bilateral lower extremity continuous wave Doppler with analog waveform analysis,segmental pressures,and ankle brachial indexes without exercise. Left Segmental Pressures Left brachial= 91mmHg. Left posterior tibial artery = 116mmHg. Left dorsalis pedis artery = 99mmHg. Left digit = 86 mmHg. The left dorsalis pedis waveforms are triphasic. The left posterior tibial artery waveforms are triphasic. Right Segmental Pressures Right brachial= 94mmHg. Right posterior tibial artery = 117mmHg. Right dorsalis pedis artery = 120mmHg. Right digit = 73 mmHg. The right dorsalis pedis waveforms are triphasic. The right posterior tibial artery waveforms are triphasic. Indices The right ankle brachial index by the dorsalis pedis is 1.28. The right ankle brachial index by the posterior tibial artery is 1.24. The right digital-brachial index is 0.78. The left ankle brachial index by the dorsalis pedis is 1.05. The left ankle brachial index by the posterior tibial artery is 1.23. The left digital-brachial index is 0.91. Interpretation Summary Triphasic Doppler waveforms are noted at ankle level bilaterally. Pulse-volume recordings appear satisfactory at all levels bilaterally. Resting ankle-brachial indices are normal bilaterally. Digital-brachial indices are normal bilaterally. There is no evidence of significant arterial occlusive disease in the lower extremities bilaterally. Ordering Physician: Milrded Jackson Referring Physician: James Stein Performed By: Julieth Abernathy RVT
--- NOTE | 2019-08-11 13:50 | VDLE_ITS ---
Reason For Study: Edema RIGHT LEFT CFV is compressible, spontaneous, phasic, CFV is compressible, spontaneous, phasic, competent and demonstrates normal competent, and demonstrates normal augmentation. augmentation. FV is compressible, spontaneous, phasic, FV is compressible, spontaneous, phasic, competent and demonstrates normal competent and demonstrates normal augmentation. augmentation. POP V is compressible, spontaneous, phasic, POP V is compressible, spontaneous, phasic, competent and demonstrates normal competent and demonstrates normal augmentation. augmentation. T/P Trunk is compressible. T/P Trunk is compressible. PTV is compressible. PTV is compressible. RT PerV is compressible. LT PerV is compressible. SFJ is competent and measures 0.80 x 0.85 cm. SFJ is competent and measures 1.18 x 1.11 cm. GSV proximal thigh measures 0.57 x 0.57 cm. GSV proximal thigh measures 0.51 x 0.55 cm. GSV at knee measures 0.44 x0.44 cm. GSV above knee is competent. GSV is competent throughout. GSV at knee measures 0.41 x 0.44 cm. SSV proximal calf is competent and measures GSV below knee is INCOMPETENT for greater 0.10 x 0.11 cm. than 0.5 seconds. Procedure SSV at prox calf measures 0.06 x 0.06 cm and Exam performed in department. is to small to evaluate. A preliminary report was called and/or faxed to [facility]. Interpretation Summary Deep veins of the lower extremities are bilaterally patent and compressible segmentally. There is no evidence of deep vein thrombosis on either side. Valvular competence appears intact within the proximal deep venous systems bilaterally. The great saphenous veins appear bilaterally patent and compressible segmentally. Sapheno-femoral junctions are bilaterally competent . The right great saphenous vein appears segmentally competent. The left great saphenous vein appears competent above the knee. The left great saphenous vein appears incompetent below the knee. The right small saphenous vein is patent and competent. The left small saphenous vein is too small to assess. Ordering Physician: Mildred Jackson Referring Physician: James Stein Performed By: Julieth Abernathy RVT
[2019-08-12 11:24] VITALS: BP 80/55; PULSE 89; RESP 20; TEMP 36.5; BMI 35.9
--- NOTE | 2019-08-12 12:07 | PN.PCM_ITS ---
(1) Ulcer of right lower extremity, limited to breakdown of skin Status: Chronic Current Visit: Yes Code(s): L97.911 - Non-pressure chronic ulcer of unspecified part of right lower leg limited to breakdown of skin (2) Chronic ulcer of left leg with fat layer exposed Status: Chronic Current Visit: Yes Code(s): L97.922 - Non-pressure chronic ulcer of unspecified part of left lower leg with fat layer exposed (3) Chronic ulcer of right leg with fat layer exposed Status: Chronic Current Visit: Yes Code(s): L97.912 - Non-pressure chronic ulcer of unspecified part of right lower leg with fat layer exposed Type of Wound Date of Service: 08/12/19 Chief Complaint: Bilateral Recurrent lower extremity ulcers. History of Wound: Mr. Medina is a 64-year-old who presents due to recurrent bilateral leg ulcers. He reports blistering with subsequent ulcerations which have been ongoing for the last couple of months. He reports compliance with his Circaid for compression. He has tried some conservative wound care but is concerned that it keeps recurring. He feels well otherwise. Progress of Wound: Significant improvement in the past week. Minimal area on the RLE left. - Physical Exam Vital Signs Temp Pulse Resp BP 97.7 F L 89 20 H 80/55 L 08/12/19 11:24 08/12/19 11:24 08/12/19 11:24 08/12/19 11:24 General: Alert, Oriented x3, Cooperative, No apparent distress HEENT: Atraumatic, Normocephalic Oral: Moist Mucosa Neck: Supple Lungs: Normal air movement Extremities: No cyanosis Skin: Ulcer/ Wound Wound Measurements and Assessment WC - Nurse 1 - General Ulcer Measurement Start: 08/04/19 11:29 Freq: Status: Active Protocol: Activity Type Activity Date Activity User E-Sign Co-Sign Detail Recorded Client Recorded Date Recorded By Document 08/12/19 11:24 DL [id number] 08/12/19 11:35 DL 08/12/19 11:24 Wound Center Nurse 1 [Ulcer Assessment] #7- LLE CLUSTER -Current Size (cm) - Length 0.1 -Current Size (cm) - Width 0.1 -Current Size (cm) - Depth 0.1 -Total Square Cm 0.01 -Photo Taken No -Exudate Amt None Present -Wound Margin Flat & Intact -Granulation Amt Small (1-33%) -Granulation Quality [place] -Necrosis Amt None Present (0 %) -Structure Exposed N/A -Texture (Eunice-wound Skin Appearance) Scarring -Moisture (Eunice-wound Skin Appearance No Abnormality ) -Color (Eunice-wound Skin Appearance) Hemosiderin Staining -Temperature (Eunice-wound Skin No Abnormality Appearance) (Pt Warm) -Tenderness on Palpation (Eunice-wound No Skin Appearance) -Ulcer Cleansing Wound Cleanser -Foul Odor after Cleansing No #6- R DIEHL -Current Size (cm) - Length 0.4 -Current Size (cm) - Width 0.5 -Current Size (cm) - Depth 0.1 -Total Square Cm 0.20 -Photo Taken No -Exudate Amt None Present -Wound Margin Flat & Intact -Granulation Amt Small (1-33%) -Granulation Quality [place] -Necrosis Amt None Present (0 %) -Structure Exposed N/A -Texture (Eunice-wound Skin Appearance) Scarring -Moisture (Eunice-wound Skin Appearance No Abnormality ) -Color (Eunice-wound Skin Appearance) Hemosiderin Staining -Temperature (Eunice-wound Skin No Abnormality Appearance) (Pt Warm) -Tenderness on Palpation (Eunice-wound No Skin Appearance) -Ulcer Cleansing Wound Cleanser -Foul Odor after Cleansing No -Anesthetic Used 5% Lidocaine Gel #5- RLE CLUSTER -Current Size (cm) - Length 4.4 -Current Size (cm) - Width 1.6 -Current Size (cm) - Depth 0.1 -Total Square Cm 7.04 -Photo Taken No -Exudate Amt None Present -Wound Margin Flat & Intact -Granulation Amt Medium (34-66%) -Granulation Quality [place] -Necrosis Amt None Present (0 %) -Structure Exposed N/A -Texture (Eunice-wound Skin Appearance) Scarring -Moisture (Eunice-wound Skin Appearance No Abnormality ) -Color (Eunice-wound Skin Appearance) Hemosiderin Staining -Temperature (Eunice-wound Skin No Abnormality Appearance) (Pt Warm) -Tenderness on Palpation (Eunice-wound No Skin Appearance) -Ulcer Cleansing Wound Cleanser -Foul Odor after Cleansing No -Anesthetic Used 5% Lidocaine Gel [Edema Assessment] -Right Calf (cm) 32.8 -Right Ankle (cm) 21 -Left Calf (cm) 33 -Left Ankle (cm) 21.2 WC - Nurse 2 - General Ulcer CM Notes Start: 08/04/19 11:29 Freq: Status: Active Protocol: Activity Type Activity Date Activity User E-Sign Co-Sign Detail Recorded Client Recorded Date Recorded By Document 08/12/19 11:59 MW [id number] 08/12/19 12:02 MW 08/12/19 11:59 Wound Center Nurse 2 [Procedure/Treatment] #7- LLE CLUSTER -Time 12:00 -Correct Patient Yes -Correct Side, Site, Position Yes -Correct Procedure Yes -Procedure Performed No -Post Debridement Size (cm) - Length 0 -Post Debridement Size (cm) - Width 0 -Post Debridement Size (cm) - Depth 0 -Total Square Cm 0 -Wound/Ulcer Outcome Healed- Epithelialized #6- R DIEHL -Time 12:01 -Correct Patient Yes -Correct Side, Site, Position Yes -Correct Procedure Yes -Procedure Performed No -Post Debridement Size (cm) - Length 0.1 -Post Debridement Size (cm) - Width 0.1 -Post Debridement Size (cm) - Depth 0.1 -Total Square Cm 0.01 -Wound/Ulcer Outcome Not Healed -Ulcer Cleansing Rinsed/ Irrigated with Saline -Foul Odor after Cleansing No -Bioengineered Tissue No -Bleeding Controlled with Pressure -Offloading No #5- RLE CLUSTER -Time 12:01 -Correct Patient Yes -Correct Side, Site, Position Yes -Correct Procedure Yes -Procedure Performed Yes -Type of Procedure Debridement -Clinical Debridement Subcutaneous -Post Debridement Size (cm) - Length 0.4 -Post Debridement Size (cm) - Width 0.6 -Post Debridement Size (cm) - Depth 0.1 -Total Square Cm 0.24 -Wound/Ulcer Outcome Not Healed -Ulcer Cleansing Rinsed/ Irrigated with Saline -Foul Odor after Cleansing No -Bioengineered Tissue No -Bleeding Controlled with Pressure -Offloading No -Treatment Response Procedure Tolerated Well [See Physician Procedure note for Specifics] Pain Scale: 0-10 Numeric [Pain] -Is Patient Pain Free? Yes Musculoskeletal: No Muscle Wasting Neurological: Cranial nerves II-XII grossly intact Psych/Mental Status: Normal Affect Debridement Note Post-Debridement Measurements/Treatment WC - Nurse 2 - General Ulcer CM Notes Start: 08/04/19 11:29 Freq: Status: Active Protocol: Activity Type Activity Date Activity User E-Sign Co-Sign Detail Recorded Client Recorded Date Recorded By Document 08/04/19 11:45 MW [id number] 08/04/19 11:53 MW Document 08/12/19 11:59 MW [id number] 08/12/19 12:02 MW 08/04/19 08/12/19 11:45 11:59 Wound Center Nurse 2 #7- LLE CLUSTER -Time 11:51 12:00 -Correct Patient Yes Yes -Correct Side, Site, Position Yes Yes -Correct Procedure Yes Yes -Procedure Performed Yes No -Type of Procedure Debridement -Clinical Debridement Subcutaneous -Post Debridement Size (cm) - Length 0.6 0 -Post Debridement Size (cm) - Width 0.9 0 -Post Debridement Size (cm) - Depth 0.1 0 -Total Square Cm 0.54 0 -Wound/Ulcer Outcome Not Healed Healed- Epithelialized -Ulcer Cleansing Rinsed/ Irrigated with Saline -Foul Odor after Cleansing No -Bioengineered Tissue No -Bleeding Controlled with Pressure -Offloading No -Treatment Response Procedure Tolerated Well #6- R DIEHL -Time 11:50 12:01 -Correct Patient Yes Yes -Correct Side, Site, Position Yes Yes -Correct Procedure Yes Yes -Procedure Performed No No -Post Debridement Size (cm) - Length 0.1 -Post Debridement Size (cm) - Width 0.1 -Post Debridement Size (cm) - Depth 0.1 -Total Square Cm 0.01 -Wound/Ulcer Outcome Not Healed Not Healed -Ulcer Cleansing Not Cleansed Rinsed/ Irrigated with Saline -Foul Odor after Cleansing No No -Bioengineered Tissue No No -Bleeding Controlled with Pressure Pressure -Offloading No No -Treatment Response Procedure Tolerated Well #5- RLE CLUSTER -Time 11:50 12:01 -Correct Patient Yes Yes -Correct Side, Site, Position Yes Yes -Correct Procedure Yes Yes -Procedure Performed No Yes -Type of Procedure Debridement -Clinical Debridement Subcutaneous -Post Debridement Size (cm) - Length 0.4 -Post Debridement Size (cm) - Width 0.6 -Post Debridement Size (cm) - Depth 0.1 -Total Square Cm 0.24 -Wound/Ulcer Outcome Not Healed Not Healed -Ulcer Cleansing Not Cleansed Rinsed/ Irrigated with Saline -Foul Odor after Cleansing No No -Bioengineered Tissue No No -Bleeding Controlled with NA Pressure -Offloading No No -Treatment Response Procedure Procedure Tolerated Well Tolerated Well Pain Scale: 0-10 Numeric Is Patient Pain Free? Yes Yes Wound debrided: RLE Cluster Type of Debridement: Excisional debridement Anesthesia Used: 4% Lidocaine Solution Depth: Down to and including healthy tissue, in the subcutaneous layer Percentage of wound debrided: 100 Instrument Used: 3mm curette Tissue Removed: Slough and devitalized tissue Severity: Fat Layer Exposed Amount of bleeding with debridement: Mild Bleeding Controlled with: Pressure Patient tolerated procedure well Assessment/Plan Active Problems Chronic ulcer of left leg with fat layer exposed (Chronic) Ulcer of right lower extremity, limited to breakdown of skin (Chronic) Chronic ulcer of right leg with fat layer exposed (Chronic) Assessment: Recurrent bilateral lower extremity cluster ulcers. Statsis Dermatitis. Type 2 diabetes mellitus. Morbid obesity. Plan: Significant improvement noted. Debridement done as documented above, procedure was well tolerated. Continue Aquaphor, Xeroform and guaze. Continue Circaid for compression. Avoid idle standing, elevate lower extremities when seated and in bed and also increase protein intake. Optimal Diabetes control. Venous and Arterial studies discussed. His questions were answered and he was advised to call with any further questions or concerns. Follow-up in a week. This note was generated with [employer] dictation software. It may contain incorrect words, spelling, and punctuation that were not noted in checking the note before signing.
[2019-08-19 13:06] VITALS: BP 107/71; PULSE 78; RESP 18; TEMP 36.3; BMI 35.9
--- NOTE | 2019-08-19 14:03 | PCM.WC.PN ---
(1) Ulcer of right lower extremity, limited to breakdown of skin Status: Chronic Current Visit: Yes Code(s): L97.911 - Non-pressure chronic ulcer of unspecified part of right lower leg limited to breakdown of skin (2) Chronic ulcer of left leg with fat layer exposed Status: Chronic Current Visit: Yes Code(s): L97.922 - Non-pressure chronic ulcer of unspecified part of left lower leg with fat layer exposed (3) Chronic ulcer of right leg with fat layer exposed Status: Chronic Current Visit: Yes Code(s): L97.912 - Non-pressure chronic ulcer of unspecified part of right lower leg with fat layer exposed Type of Wound Date of Service: 08/19/19 Chief Complaint: Bilateral Recurrent lower extremity ulcers. History of Wound: Mr. Medina is a 64-year-old who presents due to recurrent bilateral leg ulcers. He reports blistering with subsequent ulcerations which have been ongoing for the last couple of months. He reports compliance with his Circaid for compression. He has tried some conservative wound care but is concerned that it keeps recurring. He feels well otherwise. Progress of Wound: Improving. Minimal area on the RLE left. - Physical Exam Vital Signs Temp Pulse Resp BP 97.3 F L 78 18 107/71 08/19/19 13:06 08/19/19 13:06 08/19/19 13:06 08/19/19 13:06 General: Alert, Oriented x3, Cooperative, No apparent distress HEENT: Atraumatic, Normocephalic Oral: Moist Mucosa Neck: Supple Lungs: Normal air movement Extremities: No cyanosis Skin: Ulcer/ Wound Wound Measurements and Assessment WC - Nurse 1 - General Ulcer Measurement Start: 08/04/19 11:29 Freq: Status: Active Protocol: Activity Type Activity Date Activity User E-Sign Co-Sign Detail Recorded Client Recorded Date Recorded By Document 08/19/19 13:06 MW [id number] 08/19/19 13:13 MW 08/19/19 13:06 Wound Center Nurse 1 [Ulcer Assessment] #6- R DIEHL -Combined with other wound No -Current Size (cm) - Length 0.1 -Current Size (cm) - Width 0.1 -Current Size (cm) - Depth 0.1 -Total Square Cm 0.01 -Photo Taken No -Epithelialization Large 67-100% -Tunneling No -Undermining/Tunneling No -Circular Undermining No -Exudate Amt None Present -Texture (Eunice-wound Skin Appearance) Assessed, Localized Edema -Moisture (Eunice-wound Skin Appearance No Abnormality, ) Assessed -Color (Eunice-wound Skin Appearance) No Abnormality, Assessed -Temperature (Eunice-wound Skin No Abnormality Appearance) (Pt Warm) -Tenderness on Palpation (Eunice-wound No Skin Appearance) -Foul Odor after Cleansing No #5- RLE CLUSTER -Combined with other wound No -Current Size (cm) - Length 0.1 -Current Size (cm) - Width 0.1 -Current Size (cm) - Depth 0.1 -Total Square Cm 0.01 -Photo Taken No -Epithelialization Large 67-100% -Tunneling No -Undermining/Tunneling No -Circular Undermining No -Texture (Eunice-wound Skin Appearance) Assessed, Localized Edema -Moisture (Eunice-wound Skin Appearance No Abnormality, ) Assessed -Color (Eunice-wound Skin Appearance) No Abnormality, Assessed -Temperature (Eunice-wound Skin No Abnormality Appearance) (Pt Warm) -Tenderness on Palpation (Eunice-wound No Skin Appearance) -Ulcer Cleansing Not Cleansed -Foul Odor after Cleansing No [Edema Assessment] -Lower Limb Edema Present Yes -Right Calf (cm) 36.5 -Right Ankle (cm) 22.4 -Left Calf (cm) 37.0 -Left Ankle (cm) 21.5 WC - Nurse 2 - General Ulcer CM Notes Start: 08/04/19 11:29 Freq: Status: Active Protocol: Activity Type Activity Date Activity User E-Sign Co-Sign Detail Recorded Client Recorded Date Recorded By Document 08/19/19 13:14 MW [id number] 08/19/19 13:21 MW 08/19/19 13:14 Wound Center Nurse 2 [Procedure/Treatment] #6- R DIEHL -Time 13:16 -Correct Patient Yes -Correct Side, Site, Position Yes -Correct Procedure Yes -Procedure Performed No -Post Debridement Size (cm) - Length 0.1 -Post Debridement Size (cm) - Width 0.1 -Post Debridement Size (cm) - Depth 0.1 -Total Square Cm 0.01 -Wound/Ulcer Outcome Not Healed -Ulcer Cleansing Rinsed/ Irrigated with Saline -Foul Odor after Cleansing No -Bioengineered Tissue No -Bleeding Controlled with Pressure -Offloading No -Treatment Response Procedure Tolerated Well #5- RLE CLUSTER -Time 13:19 -Correct Patient Yes -Correct Side, Site, Position Yes -Correct Procedure Yes -Procedure Performed Yes -Type of Procedure Debridement -Clinical Debridement Subcutaneous -Post Debridement Size (cm) - Length 0.4 -Post Debridement Size (cm) - Width 0.3 -Post Debridement Size (cm) - Depth 0.1 -Total Square Cm 0.12 -Wound/Ulcer Outcome Not Healed -Ulcer Cleansing Rinsed/ Irrigated with Saline -Foul Odor after Cleansing No -Bioengineered Tissue No -Bleeding Controlled with Pressure -Offloading No -Treatment Response Procedure Tolerated Well [See Physician Procedure note for Specifics] Pain Scale: 0-10 Numeric [Pain] -Is Patient Pain Free? Yes Musculoskeletal: No Muscle Wasting Neurological: Cranial nerves II-XII grossly intact Psych/Mental Status: Normal Affect Debridement Note Post-Debridement Measurements/Treatment WC - Nurse 2 - General Ulcer CM Notes Start: 08/04/19 11:29 Freq: Status: Active Protocol: Activity Type Activity Date Activity User E-Sign Co-Sign Detail Recorded Client Recorded Date Recorded By Document 08/04/19 11:45 MW [id number] 08/04/19 11:53 MW Document 08/12/19 11:59 MW [id number] 08/12/19 12:02 MW Document 08/19/19 13:14 MW [id number] 08/19/19 13:21 MW 08/04/19 08/12/19 08/19/19 11:45 11:59 13:14 Wound Center Nurse 2 #7- LLE CLUSTER -Time 11:51 12:00 -Correct Patient Yes Yes -Correct Side, Site, Position Yes Yes -Correct Procedure Yes Yes -Procedure Performed Yes No -Type of Procedure Debridement -Clinical Debridement Subcutaneous -Post Debridement Size (cm) - Length 0.6 0 -Post Debridement Size (cm) - Width 0.9 0 -Post Debridement Size (cm) - Depth 0.1 0 -Total Square Cm 0.54 0 -Wound/Ulcer Outcome Not Healed Healed- Epithelialized -Ulcer Cleansing Rinsed/ Irrigated with Saline -Foul Odor after Cleansing No -Bioengineered Tissue No -Bleeding Controlled with Pressure -Offloading No -Treatment Response Procedure Tolerated Well #6- R DIEHL -Time 11:50 12:01 13:16 -Correct Patient Yes Yes Yes -Correct Side, Site, Position Yes Yes Yes -Correct Procedure Yes Yes Yes -Procedure Performed No No No -Post Debridement Size (cm) - Length 0.1 0.1 -Post Debridement Size (cm) - Width 0.1 0.1 -Post Debridement Size (cm) - Depth 0.1 0.1 -Total Square Cm 0.01 0.01 -Wound/Ulcer Outcome Not Healed Not Healed Not Healed -Ulcer Cleansing Not Cleansed Rinsed/ Rinsed/ Irrigated with Irrigated with Saline Saline -Foul Odor after Cleansing No No No -Bioengineered Tissue No No No -Bleeding Controlled with Pressure Pressure Pressure -Offloading No No No -Treatment Response Procedure Procedure Tolerated Well Tolerated Well #5- RLE CLUSTER -Time 11:50 12: 13:19 -Correct Patient Yes Yes Yes -Correct Side, Site, Position Yes Yes Yes -Correct Procedure Yes Yes Yes -Procedure Performed No Yes Yes -Type of Procedure Debridement Debridement -Clinical Debridement Subcutaneous Subcutaneous -Post Debridement Size (cm) - Length 0.4 0.4 -Post Debridement Size (cm) - Width 0.6 0.3 -Post Debridement Size (cm) - Depth 0.1 0.1 -Total Square Cm 0.24 0.12 -Wound/Ulcer Outcome Not Healed Not Healed Not Healed -Ulcer Cleansing Not Cleansed Rinsed/ Rinsed/ Irrigated with Irrigated with Saline Saline -Foul Odor after Cleansing No No No -Bioengineered Tissue No No No -Bleeding Controlled with NA Pressure Pressure -Offloading No No No -Treatment Response Procedure Procedure Procedure Tolerated Well Tolerated Well Tolerated Well Pain Scale: 0-10 Numeric Is Patient Pain Free? Yes Yes Yes Wound debrided: Right lower etremity ( medial ) Type of Debridement: Excisional debridement Anesthesia Used: 4% Lidocaine Solution Depth: Down to and including healthy tissue, in the subcutaneous layer Percentage of wound debrided: 100 Instrument Used: - - 1mm Tissue Removed: Slough and devitalized tissue Severity: Fat Layer Exposed Amount of bleeding with debridement: Mild Bleeding Controlled with: Pressure Patient tolerated procedure well Assessment/Plan Active Problems Chronic ulcer of left leg with fat layer exposed (Chronic) Ulcer of right lower extremity, limited to breakdown of skin (Chronic) Chronic ulcer of right leg with fat layer exposed (Chronic) Assessment: Recurrent bilateral lower extremity cluster ulcers. Statsis Dermatitis. Type 2 diabetes mellitus. Morbid obesity. Plan: Improving Minimal area left. Debridement done as documented above, procedure was well tolerated. switch to pomogran with adaptoc over top to RLE medial ulcer. Change daily. Continue Aquaphor. Continue Circaid for compression. Avoid idle standing, elevate lower extremities when seated and in bed and also increase protein intake. Optimal Diabetes control. Venous and Arterial studies discussed. His questions were answered and he was advised to call with any further questions or concerns. Follow-up in a week. This note was generated with [employer] dictation software. It may contain incorrect words, spelling, and punctuation that were not noted in checking the note before signing.
== END 2019-08-19 23:59 ==
LOC: WC 12:45
PROVIDERS: Family Provider Family Medicine; PCP Family Medicine; Referring Provider Internal Medicine; Visit Provider Internal Medicine
DX: E11.622 Type 2 diabetes mellitus with other skin ulcer (principal); L97.811 Non-pressure chronic ulcer of other part of right lower leg limited to breakdown of skin; L97.822 Non-pressure chronic ulcer of other part of left lower leg with fat layer exposed; R60.0 Localized edema; E11.51 Type 2 diabetes mellitus with diabetic peripheral angiopathy without gangrene; E11.42 Type 2 diabetes mellitus with diabetic polyneuropathy; E66.01 Morbid (severe) obesity due to excess calories; Z68.35 Body mass index [BMI] 35.0-35.9, adult; Z71.3 Dietary counseling and surveillance
CPT/HCPCS: 11042; 93923; 93970; 99213; G0463

== ENCOUNTER 2019-09-02 10:45 | Outpatient (RCR) | payer OTHER, SELFPAY ==
[2019-08-20 01:29] VITALS: BP 107/71; PULSE 78; RESP 18; TEMP 36.3
[2019-08-26 10:36] VITALS: BP 131/91; PULSE 63; RESP 18; TEMP 36.2; BMI 35.9
--- NOTE | 2019-08-26 11:27 | PN.PCM_ITS ---
(1) Chronic ulcer of right leg with fat layer exposed Status: Chronic Current Visit: Yes Code(s): L97.912 - Non-pressure chronic ulcer of unspecified part of right lower leg with fat layer exposed (2) Venous insufficiency Status: Chronic Current Visit: Yes Type of Wound Date of Service: 08/26/19 Chief Complaint: Bilateral Recurrent lower extremity ulcers. History of Wound: Mr. Medina is a 64-year-old who presents due to recurrent bilateral leg ulcers. He reports blistering with subsequent ulcerations which have been ongoing for the last couple of months. He reports compliance with his Circaid for compression. He has tried some conservative wound care but is concerned that it keeps recurring. He feels well otherwise. Progress of Wound: Some worsening noted over the last week. Patient states that he pulled a scab during his shower. - Physical Exam Vital Signs Temp Pulse Resp BP 97.1 F L 63 18 131/91 H 08/26/19 10:36 08/26/19 10:36 08/26/19 10:36 08/26/19 10:36 General: Alert, Oriented x3, Cooperative, No apparent distress HEENT: Atraumatic, Normocephalic Oral: Moist Mucosa Neck: Supple Lungs: Normal air movement Abdomen: Non Tender, Obese Extremities: No cyanosis Skin: Ulcer/ Wound Wound Measurements and Assessment WC - Nurse 1 - General Ulcer Measurement Start: 08/26/19 10:36 Freq: Status: Active Protocol: Activity Type Activity Date Activity User E-Sign Co-Sign Detail Recorded Client Recorded Date Recorded By Document 08/26/19 10:36 DV [id number] 08/26/19 10:53 DV 08/26/19 10:36 Wound Center Nurse 1 [Ulcer Assessment] #7- LLE CLUSTER -Combined with other wound No #6- R DIEHL -Combined with other wound No -Current Size (cm) - Length 0.1 -Current Size (cm) - Width 0.1 -Current Size (cm) - Depth 0.1 -Total Square Cm 0.01 -Photo Taken No -Epithelialization None Present -Tunneling No -Undermining/Tunneling No -Circular Undermining No -Texture (Eunice-wound Skin Appearance) No Abnormality, Assessed -Moisture (Eunice-wound Skin Appearance No Abnormality, ) Assessed -Color (Eunice-wound Skin Appearance) No Abnormality, Assessed -Temperature (Eunice-wound Skin No Abnormality Appearance) (Pt Warm) -Tenderness on Palpation (Eunice-wound No Skin Appearance) -Ulcer Cleansing Rinsed/ Irrigated with Saline -Foul Odor after Cleansing No #5- RLE CLUSTER -Combined with other wound No -Current Size (cm) - Length 1.5 -Current Size (cm) - Width 0.9 -Current Size (cm) - Depth 0.1 -Total Square Cm 1.35 -Photo Taken No -Epithelialization Small 1-33% -Tunneling No -Undermining/Tunneling No -Circular Undermining No -Classification - Thickness Full Thickness without Exposed Support Structure -Exudate Amt Small -Exudate Type Serous -Wound Margin Flat & Intact -Granulation Amt None Present (0 %) -Granulation Quality N/A -Slough/Fibrin Yes -Necrosis Amt Small (1-33%) -Necrotic Tissue Type Adherent Slough -Structure Exposed None/Limited to Skin Breakdown -Texture (Eunice-wound Skin Appearance) Assessed, Scarring -Moisture (Eunice-wound Skin Appearance Assessed, ) Weeping -Color (Eunice-wound Skin Appearance) No Abnormality, Assessed -Temperature (Eunice-wound Skin No Abnormality Appearance) (Pt Warm) -Tenderness on Palpation (Eunice-wound No Skin Appearance) -Ulcer Cleansing Rinsed/ Irrigated with Saline -Foul Odor after Cleansing No -Anesthetic Used 4% Lidocaine Solution [Edema Assessment] -Lower Limb Edema Present No Musculoskeletal: No Muscle Wasting Neurological: Cranial nerves II-XII grossly intact Psych/Mental Status: Normal Affect Debridement Note Wound debrided: Right leg Type of Debridement: Excisional debridement Anesthesia Used: 4% Lidocaine Solution Depth: Down to and including healthy tissue, in the subcutaneous layer Percentage of wound debrided: 100 Instrument Used: 3mm curette Tissue Removed: Slough and devitalized tissue Severity: Fat Layer Exposed Amount of bleeding with debridement: Mild Bleeding Controlled with: Pressure Patient tolerated procedure well Assessment/Plan Active Problems Chronic ulcer of right leg with fat layer exposed (Chronic) Venous insufficiency (Chronic) Assessment: Recurrent bilateral lower extremity cluster ulcers. Statsis Dermatitis. Type 2 diabetes mellitus. Morbid obesity. Plan: Worsening today as decribed above. Debridement done as documented above, procedure was well tolerated. Continue pomogran with adaptic over top to RLE medial ulcer. Change daily. Continue Aquaphor. Continue Circaid for compr ession. Avoid idle standing, elevate lower extremities when seated and in bed and also increase protein intake. Optimal Diabetes control. Venous and Arterial studies discussed. His questions were answered and he was advised to call with any further questions or concerns. Follow-up in a week. This note was generated with [employer] ?.??ation software. It may contain incorrect words, spelling, and punctuation that were not noted in checking the note before signing. Code Visit [id number]: [id number] Eld[place] subq tissue 20 sq cm/<
[2019-09-02 11:14] VITALS: BMI 35.9
--- NOTE | 2019-09-02 11:33 | PCM.WC.PN ---
(1) Chronic ulcer of right leg with fat layer exposed Status: Chronic Current Visit: Yes Code(s): L97.912 - Non-pressure chronic ulcer of unspecified part of right lower leg with fat layer exposed (2) Venous insufficiency Status: Chronic Current Visit: Yes Type of Wound Date of Service: 09/02/19 Chief Complaint: Bilateral Recurrent lower extremity ulcers. History of Wound: Mr. Medina is a 64-year-old who presents due to recurrent bilateral leg ulcers. He reports blistering with subsequent ulcerations which have been ongoing for the last couple of months. He reports compliance with his Circaid for compression. He has tried some conservative wound care but is concerned that it keeps recurring. He feels well otherwise. Progress of Wound: Healed. - Physical Exam Vital Signs Temp Pulse Resp BP 97.1 F L 63 18 131/91 H 08/26/19 10:36 08/26/19 10:36 08/26/19 10:36 08/26/19 10:36 General: Alert, Oriented x3, Cooperative, No apparent distress HEENT: Atraumatic, Normocephalic Oral: Moist Mucosa Neck: Supple Lungs: Normal air movement Abdomen: Non Tender, Obese Extremities: No cyanosis Wound Measurements and Assessment WC - Nurse 1 - General Ulcer Measurement Start: 08/26/19 10:36 Freq: Status: Active Protocol: Activity Type Activity Date Activity User E-Sign Co-Sign Detail Recorded Client Recorded Date Recorded By Document 09/02/19 11:14 DV [id number] 09/02/19 11:17 DV 09/02/19 11:14 Wound Center Nurse 1 [Ulcer Assessment] #5- RLE CLUSTER -Combined with other wound No -Current Size (cm) - Length 0.1 -Current Size (cm) - Width 0.1 -Current Size (cm) - Depth 0.1 -Total Square Cm 0.01 -Photo Taken No -Epithelialization None Present -Tunneling No -Undermining/Tunneling No -Circular Undermining No -Classification - Thickness Full Thickness without Exposed Support Structure -Texture (Eunice-wound Skin Appearance) No Abnormality, Assessed -Moisture (Eunice-wound Skin Appearance No Abnormality, ) Assessed -Color (Eunice-wound Skin Appearance) No Abnormality, Assessed -Temperature (Eunice-wound Skin No Abnormality Appearance) (Pt Warm) -Tenderness on Palpation (Eunice-wound No Skin Appearance) -Ulcer Cleansing Rinsed/ Irrigated with Saline -Foul Odor after Cleansing No [Edema Assessment] -Lower Limb Edema Present No -Right Calf (cm) 35.0 -Right Ankle (cm) 21.0 -Left Calf (cm) 35.2 -Left Ankle (cm) 22.0 WC - Nurse 2 - General Ulcer CM Notes Start: 08/26/19 10:36 Freq: Status: Active Protocol: Activity Type Activity Date Activity User E-Sign Co-Sign Detail Recorded Client Recorded Date Recorded By Document 09/02/19 11:28 MW [id number] 09/02/19 11:32 MW 09/02/19 11:28 Wound Center Nurse 2 [Procedure/Treatment] #5- RLE CLUSTER -Time 11:28 -Correct Patient Yes -Correct Side, Site, Position Yes -Correct Procedure Yes -Procedure Performed No -Post Debridement Size (cm) - Length 0 -Post Debridement Size (cm) - Width 0 -Post Debridement Size (cm) - Depth 0 -Total Square Cm 0 -Wound/Ulcer Outcome Healed- Epithelialized [See Physician Procedure note for Specifics] Pain Scale: 0-10 Numeric [Pain] -Is Patient Pain Free? Yes Musculoskeletal: No Muscle Wasting Neurological: Cranial nerves II-XII grossly intact Psych/Mental Status: Normal Affect Debridement Note Post-Debridement Measurements/Treatment WC - Nurse 2 - General Ulcer CM Notes Start: 08/26/19 10:36 Freq: Status: Active Protocol: Activity Type Activity Date Activity User E-Sign Co-Sign Detail Recorded Client Recorded Date Recorded By Document 08/26/19 11:28 MW [id number] 08/26/19 11:30 MW Document 09/02/19 11:28 MW [id number] 09/02/19 11:32 MW 08/26/19 09/02/19 11:28 11:28 Wound Center Nurse 2 #6- R DIEHL -Time 11:29 -Correct Patient Yes -Correct Side, Site, Position Yes -Correct Procedure Yes -Procedure Performed No -Post Debridement Size (cm) - Length 0 -Post Debridement Size (cm) - Width 0 -Post Debridement Size (cm) - Depth 0 -Total Square Cm 0 -Wound/Ulcer Outcome Healed- Epithelialized #5- RLE CLUSTER -Time 11:29 11:28 -Correct Patient Yes Yes -Correct Side, Site, Position Yes Yes -Correct Procedure Yes Yes -Procedure Performed Yes No -Type of Procedure Debridement -Clinical Debridement Subcutaneous -Post Debridement Size (cm) - Length 1.8 0 -Post Debridement Size (cm) - Width 0.7 0 -Post Debridement Size (cm) - Depth 0.1 0 -Total Square Cm 1.26 0 -Wound/Ulcer Outcome Not Healed Healed- Epithelialized -Ulcer Cleansing Rinsed/ Irrigated with Saline -Foul Odor after Cleansing No -Bioengineered Tissue No -Bleeding Controlled with Pressure -Offloading No Pain Scale: 0-10 Numeric Is Patient Pain Free? Yes Yes No debridement was completed today Assessment/Plan Active Problems Chronic ulcer of right leg with fat layer exposed (Chronic) Venous insufficiency (Chronic) Assessment: Recurrent bilateral lower extremity cluster ulcers. Statsis Dermatitis. Type 2 diabetes mellitus. Morbid obesity. Plan: Old ulcer is healed. Minimal skin scratch. No debridement completed today. Aquacel over area of scratch for 2 weks. Continue Aquaphor. Continue Circaid for compression. Avoid idle standing, elevate lower extremities when seated and in bed and also increase protein intake. Optimal Diabetes control. Discharged from the wound clinic. He was advised to call with any questions or concerns. This note was generated with [employer] dictation software. It may contain incorrect words, spelling, and punctuation that were not noted in checking the note before signing. Code Visit Office Visits / Consults: 67179 OV L3 Est - E and M code level 3.
== END 2019-09-18 23:59 ==
LOC: WC 10:45
PROVIDERS: Family Provider Family Medicine; PCP Family Medicine; Referring Provider Internal Medicine; Visit Provider Internal Medicine
DX: E11.622 Type 2 diabetes mellitus with other skin ulcer (principal); I87.2 Venous insufficiency (chronic) (peripheral); L97.812 Non-pressure chronic ulcer of other part of right lower leg with fat layer exposed; E66.01 Morbid (severe) obesity due to excess calories; Z71.3 Dietary counseling and surveillance
CPT/HCPCS: 11042; 99213; G0463

== ENCOUNTER 2022-10-22 13:30 | Outpatient (RCR) | payer MEDICARE, OTHER, SELFPAY ==
--- NOTE | 2022-08-27 16:44 | HP.PTEVAL ---
Patient's Visit Information BELKIS GIBSON is a 67 year old M referred to Physical Therapy by Dr. Anselmo Benavides MD with a diagnosis of LBP. Date of Evaluation: 08/27/22 Physical Therapist: José Manuel Gonzalez, DPT, OCS, CSCS - Visit Plan Frequency: 2x /Week Duration: 4-6 Weeks Plan: 2x/week for 4-6 weeks for... 1. rollout and stretch HS and quads. 2. PA mobs L/S and ext biased ROM program/postural correction. 3. core strength and progression of HEP - Subjective LBP since February. R hip and LBP. Checked into [facility] in February as he could not get out of his chair. On morphine. No idea what started it. Doctor thinks after MRI that he has OA or pinched nerve as he had pain in r thigh also(crampy). Had pain a year or two prior also. Sent to [facility] for pain management and a couple shots int he SI joint. R side much better and L side not much different or better. Gets tight when he sits too long or walker for first two minutes. Sits too long and hard to get up and move. Hurts after walking a while. Now L side hurts now in LB and posterior hip, mostly in back now. Getting out of bed is the worst. It is a chore. No numbness or tingling or bowel /bladder problems. sleeping is not a problem if he lies on his L side but hurts after a while and it will wake him up. Retired. [place] [facility] [place] 2 [place] in 45 min on TM or stepper. No strengthening. Wants exercises. woodworking is a hobby that he cannot do due to this pain. Basic ADLs: getting done slowly and puts some vaccuming off. No steps at home but would need rail. L leg feels weak. - Pain LBP Pain Intensity (Out of 10): 0 Pain Intensity Range: 1, 8 Comment: worse in am - Objective Walks slowly but I back to PT eval room, transitions gingerly but careful and I. Posture is poor lordosis, transitioning on bed gives some groans. LB AROM ext is painful at first adn then better and mod limited, flexion is tight but no pain, SB are painfree and full. reflexes 1/3 patella and achilles. Sensation LE WNL to gross light touch. Strength LE 4- hip ext and abd, 4 otherwise and symmetrical without myotomal abnormalities. repeated ext seems to helpo him move and feel better. Tightness obvious in HS and quads B. slight + L slump and SLR - Balance/Special Test Scores Oswestry Low Back Score: 20 - Goals Goal 1:: LB AROM full and without pain Goal Time Frame: 4-6 Weeks Goal 2:: Exit chair easily and without pain consistently Goal Time Frame: 4-6 Weeks Goal 3:: Pt feel LBP is 75% better and 2/10 at worst Goal Time Frame: 4-6 Weeks Goal 4:: I management of condition with ex and ROM/posture Goal Time Frame: 4-6 Weeks Goal 5:: oswestry score 5 or better. 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 dysfunction Rehabilitation Potential: Fair - Anticipated Interventions Patient/Client Instruction: Educate patient on: Condition, Plan of Care For the Purpose of:: To decrease pain, To increase ROM, To improve muscle performance and motor function, To increase tolerance to activity/condition/position, To improve ability of physical actions for home/community/work/leisure Therapeutic Exercise to Include: Strength training, Body mechanics, Postural training, Flexibilty training, Passive ROM, Active ROM, Dynamic Lumbar Stabilization, Markos Exercises For the Purpose of:: To decrease pain, To increase ROM, To improve nutrient delivery to tissue, To improve muscle performance and motor function, To increase tolerance to activity/condition/position, To improve ability of physical actions for home/community/work/leisure, To improve gait and locomotor functions Manual Therapy Techniques to Include: Mobilization, Passive ROM For the Purpose of:: To decrease pain Thank you for the opportunity to evaluate your patient. For Medicare and Medicare HMO plans, please review the plan of care and approve it. It will need to be FAXED BACK to us at [phone] for Medicare purposes. For Medicare only, by signing this I certify the plan of care. Please let me know if there are questions or concerns regarding this plan of care. Physician Signature: Date:
--- NOTE | 2022-10-22 14:18 | HP.PTDCSUM ---
It has been my pleasure to treat BELKIS GIBSON referred by Dr. Anselmo Benavides MD, with the diagnosis of LBP for a total of 10 visit(s). Discharge Date: 10/22/22 Please see the following information for a summary of their discharge status. Subjective: Pain is 97% better. Still stiff in R LE at times. Feels weak in L LE(feels weaker on steps). Sitting causes hip stiffness for 5 steps or so. Not seeing Basali anymore. LBP Pain Intensity (Out of 10): 0 L LE Pain Intensity (Out of 10): 0 % Improvement: 97 Objective/Function: AROM LB full and without pain. Walking well. Feeling good. Goal 1:: LB AROM full and without pain Goal Progress: Goal Met Goal 2:: Exit chair easily and without pain consistently Goal Progress: Goal Met Goal 3:: Pt feel LBP is 75% better and 2/10 at worst Goal Progress: Goal Met Goal 4:: I management of condition with ex and ROM/posture Goal Progress: Goal Met Goal 5:: oswestry score 5 or better. Goal Progress: Goal Met Goal 6:: walk 2 miles on TM without increased pain Goal Progress: 1.5 miles. Plan: d/c to [facility] If there are questions or concerns regarding this patient's physical therapy, please feel free to call me at [phone]. Thank you for the referral of this patient. Sincerely, José Manuel Gonzalez, DPT, OCS, CSCS Balance/Gait/Functional tests - Balance/Special Test Scores Oswestry Low Back Score: 2
== END 2022-10-22 19:00 | disposition home or self-care (01) ==
LOC: PT 13:30
PROVIDERS: PCP Family Medicine; Referring Provider Anesthesiology Pain Medicine; Visit Provider Anesthesiology Pain Medicine
DX: M54.9 Dorsalgia, unspecified (principal)
CPT/HCPCS: 97110; 97140; 97161; 97164; 97530